=== PATIENT | male | born 1965 | race Caucasian/White ===

== ENCOUNTER 2016-08-29 00:20 | Inpatient (IN) | payer BC ==
[~2016-08-29] VITALS: Ht 177.8 cm; Wt 104.3 kg
[2016-08-29 01:58] LABS: RED BLOOD COUNT 4.73 M/UL (4.00-5.10); WHITE BLOOD COUNT 11.6 K/UL (4.5-11.0)
[2016-08-29] MEDS ORDERED: ZESTRIL 40 MG T40 MG PO (10:08)
[2016-08-29] MEDS ORDERED: PRILOSEC OTC20 MG PO (10:08)
[2016-08-29] MEDS ORDERED: HYDROCHLOROTHIA50 MG PO (10:09)
[2016-08-29] MEDS ORDERED: PRAVACHOL40 MG PO (10:09)
[2016-08-29] MEDS ORDERED: TRICOR 145 MG145 MG PO (10:09)
[2016-08-29] MEDS ORDERED: NORCO 10-325 T1 EACH PO (10:12)
[2016-08-29] MEDS ORDERED: NEURONTIN300 MG PO (10:13)
[2016-08-29] MEDS ORDERED: BASAGLAR SQ (10:17)
[2016-08-30 04:16] LABS: HEMOGLOBIN 15.5 gm/dl (14.0-17.5); RED BLOOD COUNT 4.91 M/UL (4.20-5.50)
[2016-08-30 04:19] LABS: WHITE BLOOD COUNT 7.3 K/UL (4.5-11.0)
[2016-08-30 04:35] LABS: BUN/CREATININE RATIO 25 (0-10)
[2016-08-30] MEDS ORDERED: LOPRESSOR100 MG PO (17:27)
[2016-08-30] MEDS ORDERED: ZESTRIL5 MG PO (17:27)
== END 2016-08-30 18:49 | disposition home or self-care (01) | DRG 683 ==
LOC: ER1 00:20 → EDSEX 00:20 → ZEROF 05:50 → MED SURG 4 05:50
PROVIDERS: Family Medicine; ADMIT Internal Medicine
DX: N17.9 Acute kidney failure, unspecified (principal); E87.1 Hypo-osmolality and hyponatremia; E86.0 Dehydration; E86.1 Hypovolemia; I95.1 Orthostatic hypotension; I10 Essential (primary) hypertension; E78.5 Hyperlipidemia, unspecified; F17.210 Nicotine dependence, cigarettes, uncomplicated; F10.10 Alcohol abuse, uncomplicated; K76.0 Fatty (change of) liver, not elsewhere classified; E11.65 Type 2 diabetes mellitus with hyperglycemia; E78.00 Pure hypercholesterolemia, unspecified; Z80.8 Family history of malignant neoplasm of other organs or systems; Z88.0 Allergy status to penicillin; Z79.891 Long term (current) use of opiate analgesic; Z79.899 Other long term (current) drug therapy
CPT/HCPCS: ECHO; 36415; 71020; 80053; 80307; 81001; 82550; 82553; 82570; 82962; 83036; 83874; 84300; 84484; 85025; 85027; 85379; 93005; 93306; 93880; 96360; 99285; J7030; J7120